=== PATIENT | male | born 1965 | race Caucasian/White ===

== ENCOUNTER 2016-07-03 10:51 | Emergency (ER) | payer OTHER ==
--- NOTE | 2016-07-03 11:04 | PDOC ---
History of Present Illness - General Chief Complaint: Non EmpBld/Body Flud Exposure Stated Complaint: BLOOD EXPOSURE Time Seen by Provider: 07/03/16 10:58 History Source: Patient, Old Records, Other - History of Present Illness Initial Comments: 07/03/16 11:00 50-year-old male with no significant past medical history presents to the emergency department after getting blood on his hands and on his forearms while helping and injured coworker today. The patient has no open wounds on his hands or his forearms. The patient was concerned because he was not wearing gloves and although he knows the his coworker well he was concerned about any kind of transmissible diseases from body fluids. The patient is without complaints and all review of systems are negative *Physical Exam - Physical Exam General Appearance: Yes: Nourished, Appropriately Dressed. No: Apparent Distress, Disheveled Musculoskeletal: positive: Normal Inspection Extremity: positive: Normal Capillary Refill, Normal Inspection, Other (There are no open sores or wounds or evidence of skin breaks on either hand or forearm.) Medical Decision Making - Medical Decision Making 07/03/16 11:02 50-year-old male who presents to the emergency department after getting blood on his hands and forearms. I've explained to the patient that the risk is low to none given that he has no open wounds on his hands or forearms. I have encouraged the patient to follow-up with his primary care physician. The patient has no reason to suspect that his coworker is HIV positive for has hepatitis but I have nonetheless encouraged him to address the potential concern with his coworker. *DC/Admit/Observation/Transfer Diagnosis at time of Disposition: Exposure to blood or body fluid - Discharge Dispostion Disposition: HOME Condition at time of disposition: Stable Admit: No - Referrals - Patient Instructions Additional Instructions: Follow up with your primary care physician within the next week. Return to the emergency department as needed. - Post Discharge Activity Work/School Note: Back to Work
[2016-07-03 11:31] VITALS: BP 122/82; PULSE 65; TEMP 98.2; BMI 22.0
== END 2016-07-03 11:33 | disposition home or self-care (01) ==
LOC: FER 10:51
DX: Z77.21 Contact with and (suspected) exposure to potentially hazardous body fluids (principal); X58.XXXA Exposure to other specified factors, initial encounter; Y93.89 Activity, other specified; Y92.9 Unspecified place or not applicable; Y99.0 Civilian activity done for income or pay
CPT/HCPCS: 99281-25